=== PATIENT | male | born 1975 | race Two or more races ===

== ENCOUNTER 2021-01-20 11:57 | Emergency (ER) | payer MEDICAID ==
[~2021-01-20] VITALS: Ht 177.8 cm; Wt 72.6 kg
[~2021-01-20 11:57] MED LIST: ATO40T PO; FURO40TA4 PO; INSLANTI SC; INSLISPI SC; LISI20TA28 PO; NIFE90TA49 PO
[2021-01-20 13:37] LABS: Basophils # (auto) 0.1 10 ^3/uL (0-0.2); Basophils % (auto) 0.4 % (0.0-2.0); Eosinophils # (auto) 0.1 10 ^3/uL (0-0.8); Eosinophils % (auto) 0.9 % (0.0-7.0); Hemoglobin 11.6 g/dL (13.5-17.5); Lymphocytes # (auto) 1.4 10 ^3/uL (0.4-5.4); Lymphocytes % (auto) 9.9 % (10.0-50.0); Mean Corpuscular Hemoglobin 32.1 pg (28.0-32.0); Mean Corpuscular Hgb Conc. 33.2 g/dL (32.0-36.0); Mean Corpuscular Volume 96.7 fL (80.0-100.0); Monocytes # (auto) 0.7 10 ^3/uL (0-1.3); Monocytes % (auto) 5.2 % (0.0-12.0); Neutrophils # (auto) 11.4 10 ^3/uL (1.6-8.6); Neutrophils % (auto) 83.6 % (37.0-80.0); Platelet Count (auto) 184 10^3/uL (140-450); Red Blood Cells 3.62 10^6/uL (4.5-5.90); Red Cell Distribution Width 12.7 % (11.8-14.3); White Blood Cell 13.7 10^3/uL (4.4-10.8)
[2021-01-20 13:51] LABS: INR 1.09 (0.9-1.15)
[2021-01-20 13:55] LABS: Anion Gap 14 (5-15); Blood Urea Nitrogen 64 mg/dL (7-18); Calcium 8.9 mg/dL (8.5-10.1); Carbon Dioxide 28 mmol/L (21-32); Chloride 98 mmol/L (98-107); Glucose 125 mg/dL (74-106); Potassium 4.2 mmol/L (3.5-5.1); Sodium 140 mmol/L (136-145)
[2021-01-20 14:00] LABS: Alanine Aminotransferase 42 U/L (16-61); Alkaline Phosphatase 148 U/L (45-117); Aspartate Aminotransferase 17 U/L (15-37); BUN/Creatinine Ratio 4.7; Bilirubin, Total 0.4 mg/dL (0.2-1.0); GFR African American 5 mL/min; GFR Non-African American 4 mL/min; Total Protein 7.8 g/dL (6.4-8.2)
[2021-01-20 16:57] VITALS: BP 173/84
== END 2021-01-20 17:12 | disposition home or self-care (01) ==
LOC: EDBD 11:57 → ER 12:00
DX: E11.649 Type 2 diabetes mellitus with hypoglycemia without coma (principal); T68.XXXA Hypothermia, initial encounter; I12.0 Hypertensive chronic kidney disease with stage 5 chronic kidney disease or end stage renal disease; E11.22 Type 2 diabetes mellitus with diabetic chronic kidney disease; N18.6 End stage renal disease; H54.7 Unspecified visual loss; E11.319 Type 2 diabetes mellitus with unspecified diabetic retinopathy without macular edema; R55 Syncope and collapse; Z20.822 Contact with and (suspected) exposure to COVID-19; Z99.2 Dependence on renal dialysis; Z79.899 Other long term (current) drug therapy; Z79.82 Long term (current) use of aspirin
CPT/HCPCS: 36415; 70450; 71045; 80053; 82962; 83036; 84484; 85025; 85610; 85730; 87426; 93005

== ENCOUNTER 2022-01-03 23:45 | Inpatient (IN) | payer MEDICAID ==
[~2022-01-03] VITALS: Ht 172.7 cm; Wt 70.9 kg
[2022-01-04] MEDS ORDERED: LORazepam 2MG/ML-1ML VIAL IV ONE
[2022-01-04] MEDS ORDERED: LORazepam 2MG/ML-1ML VIAL ONE (00:02)
[2022-01-04] MEDS ORDERED: ACCU-CHEK COMFORT CURVE STRIP VI ONE ×2 (00:15)
[2022-01-04] MEDS ORDERED: DEXTROSE (50%) 50ML SYRG IV ONE ×2 (00:15)
[2022-01-04 00:42] LABS: Albumin 3.9 g/dL (3.4-5.0); Calcium 8.3 mg/dL (8.5-10.1)
[2022-01-04 00:45] LABS: BUN/Creatinine Ratio 3.3
[2022-01-04 00:47] LABS: Bilirubin, Total 0.4 mg/dL (0.2-1.0); Total Protein 7.5 g/dL (6.4-8.2)
[2022-01-04] MEDS ORDERED: PIPERACILLIN-TAZOB 3.375GM 100 ML IV ONE (01:30)
[2022-01-04] MEDS ORDERED: VANCOMYCIN 1GM/250ML 250 ML IV ONE (01:30)
[2022-01-04 02:41] LABS: Urine Bacteria FEW /hpf (None Seen); Urine Blood TRACE /uL (Negative); Urine Specific Gravity 1.014 (1.001-1.035); Urine Sperm PRESENT /hpf (None Seen); Urine WBC 11 /hpf (0 - 3)
[2022-01-04 02:48] LABS: Alcohol, Urine < 3.0 mg/dL (0-10); Amphetamine Screen, Urine NEGATIVE (NEGATIVE); Barbiturate Scree,Urine NEGATIVE (NEGATIVE); Benzodiazephine Screen, Urine NEGATIVE (NEGATIVE); Cannabinoid Screen, Urine NEGATIVE (NEGATIVE); Cocaine Screen, Urine NEGATIVE (NEGATIVE); Opiate Scree,Urine NEGATIVE (NEGATIVE); Phencyclidine Screen, Urine NEGATIVE (NEGATIVE)
[2022-01-04] MEDS ORDERED: NIFEdipine 10 MG CAP PO ONE (05:15)
[2022-01-04] MEDS ORDERED: NIFEdipine 10 MG CAP ONE ×2 (05:49→05:50)
[2022-01-04] MEDS ORDERED: ONDANSETRON HCL 4 MG/2 ML VIAL IV PRN (06:45)
[2022-01-04] MEDS ORDERED: DEXTROSE (50%) 50ML SYRG IV PRN ×2 (06:45→11:45)
[2022-01-04 07:31] LABS: Basophils # (auto) 0 10 ^3/uL (0-0.2); Basophils % (auto) 0.6 % (0.0-2.0); Eosinophils # (auto) 0 10 ^3/uL (0-0.8); Eosinophils % (auto) 0.9 % (0.0-7.0); Hematocrit 37.9 % (41.0-53.0); Hemoglobin 12.8 g/dL (13.5-17.5); Lymphocytes # (auto) 0.9 10 ^3/uL (0.4-5.4); Lymphocytes % (auto) 17.4 % (10.0-50.0); Mean Corpuscular Hemoglobin 31.3 pg (28.0-32.0); Mean Corpuscular Hgb Conc. 33.8 g/dL (32.0-36.0); Mean Corpuscular Volume 92.6 fL (80.0-100.0); Monocytes # (auto) 0.6 10 ^3/uL (0-1.3); Monocytes % (auto) 11.3 % (0.0-12.0); Neutrophils # (auto) 3.7 10 ^3/uL (1.6-8.6); Neutrophils % (auto) 69.8 % (37.0-80.0); Nucleated Red Blood Cells % 0.1 %; Red Blood Cells 4.09 10^6/uL (4.5-5.90); Red Cell Distribution Width 13.3 % (11.8-14.3); White Blood Cell 5.3 10^3/uL (4.4-10.8)
[2022-01-04] MEDS ORDERED: InsuLIN REG 1unit/0.01ml Soln (100units/ml) SC SCH (08:00)
[2022-01-04] MEDS ORDERED: ACCU-CHEK COMFORT CURVE STRIP VI SCH (08:00)
[2022-01-04] MEDS: cefTRIAXone 1GM/50ML D5W 50 ML IV SCH (09:45)
[2022-01-04] MEDS: FUROSEMIDE 40 MG TAB PO SCH (09:46)
[2022-01-04] MEDS: LISINOPRIL 20 MG TAB PO SCH (09:46)
[2022-01-04] MEDS: NIFEdipine ER 30 MG TAB PO SCH (10:33)
[2022-01-04] MEDS: ACCU-CHEK COMFORT CURVE STRIP VI SCH ×3 (12:00→23:45)
[2022-01-04] MEDS: InsuLIN REG 1unit/0.01ml Soln (100units/ml) SC SCH ×3 (12:00→23:57)
[2022-01-04] MEDS ORDERED: PANT40T PO (14:15)
[2022-01-04 16:00] VITALS: BP 138/75
[2022-01-04 20:00] VITALS: BP 124/84
[2022-01-04 22:00] VITALS: BP 124/84
[2022-01-04] MEDS: ATORVASTATIN 20 MG TAB PO SCH (23:45)
[2022-01-05 05:00] VITALS: BP 156/86
[2022-01-05 06:35] LABS: Basophils # (auto) 0.1 10 ^3/uL (0-0.2); Basophils % (auto) 0.9 % (0.0-2.0); Eosinophils # (auto) 0.3 10 ^3/uL (0-0.8); Eosinophils % (auto) 4.6 % (0.0-7.0); Hematocrit 36.2 % (41.0-53.0); Hemoglobin 12.5 g/dL (13.5-17.5); Lymphocytes # (auto) 1.3 10 ^3/uL (0.4-5.4); Lymphocytes % (auto) 21.2 % (10.0-50.0); Mean Corpuscular Hemoglobin 31.8 pg (28.0-32.0); Mean Corpuscular Hgb Conc. 34.6 g/dL (32.0-36.0); Mean Corpuscular Volume 92.2 fL (80.0-100.0); Monocytes # (auto) 0.9 10 ^3/uL (0-1.3); Monocytes % (auto) 14.4 % (0.0-12.0); Neutrophils # (auto) 3.5 10 ^3/uL (1.6-8.6); Neutrophils % (auto) 58.9 % (37.0-80.0); Red Blood Cells 3.93 10^6/uL (4.5-5.90); Red Cell Distribution Width 13.4 % (11.8-14.3); White Blood Cell 5.9 10^3/uL (4.4-10.8)
[2022-01-05] MEDS: ACCU-CHEK COMFORT CURVE STRIP VI SCH ×3 (06:44→18:00)
[2022-01-05] MEDS: InsuLIN REG 1unit/0.01ml Soln (100units/ml) SC SCH ×3 (06:49→18:00)
[2022-01-05 06:53] LABS: Albumin 3.5 g/dL (3.4-5.0); Calcium 8.9 mg/dL (8.5-10.1); Potassium 4.8 mmol/L (3.5-5.1)
[2022-01-05 06:56] LABS: BUN/Creatinine Ratio 4.2
[2022-01-05 06:58] LABS: Bilirubin, Total 0.4 mg/dL (0.2-1.0); Total Protein 7.4 g/dL (6.4-8.2)
[2022-01-05] MEDS: cefTRIAXone 1GM/50ML D5W 50 ML IV SCH (08:39)
[2022-01-05 09:00] VITALS: BP 139/80
[2022-01-05] MEDS: NIFEdipine ER 30 MG TAB PO SCH (10:00)
[2022-01-05] MEDS: FUROSEMIDE 40 MG TAB PO SCH (10:00)
[2022-01-05] MEDS: LISINOPRIL 20 MG TAB PO SCH (10:00)
[2022-01-05 13:00] VITALS: BP 158/86
[2022-01-05] MEDS: LABETALOL HCL 5 MG/ML 4ML SYRINGE IV PRN (15:38)
[2022-01-05 17:00] VITALS: BP 176/92
[2022-01-05 20:00] VITALS: BP 129/69
[2022-01-05] MEDS: ATORVASTATIN 20 MG TAB PO SCH (21:28)
[2022-01-05 22:00] VITALS: BP 129/69
[2022-01-06] MEDS: ACCU-CHEK COMFORT CURVE STRIP VI SCH ×5 (00:44→23:58)
[2022-01-06] MEDS: InsuLIN REG 1unit/0.01ml Soln (100units/ml) SC SCH ×5 (00:45→23:59)
[2022-01-06 05:00] VITALS: BP 139/82
[2022-01-06 05:26] LABS: Basophils # (auto) 0 10 ^3/uL (0-0.2); Basophils % (auto) 0.7 % (0.0-2.0); Eosinophils # (auto) 0.3 10 ^3/uL (0-0.8); Eosinophils % (auto) 4.1 % (0.0-7.0); Hematocrit 34.1 % (41.0-53.0); Hemoglobin 11.7 g/dL (13.5-17.5); Lymphocytes # (auto) 1.2 10 ^3/uL (0.4-5.4); Lymphocytes % (auto) 19.5 % (10.0-50.0); Mean Corpuscular Hemoglobin 31.5 pg (28.0-32.0); Mean Corpuscular Hgb Conc. 34.4 g/dL (32.0-36.0); Mean Corpuscular Volume 91.4 fL (80.0-100.0); Monocytes # (auto) 0.8 10 ^3/uL (0-1.3); Monocytes % (auto) 12.4 % (0.0-12.0); Neutrophils % (auto) 63.3 % (37.0-80.0); Red Blood Cells 3.73 10^6/uL (4.5-5.90); Red Cell Distribution Width 13.2 % (11.8-14.3); White Blood Cell 6.3 10^3/uL (4.4-10.8)
[2022-01-06 05:46] LABS: BUN/Creatinine Ratio 4.8; Calcium 8.7 mg/dL (8.5-10.1); Potassium 5.1 mmol/L (3.5-5.1)
[2022-01-06] MEDS ORDERED: SODIUM CHL 0.9% 1000 ML BAG XX ONE (07:00)
[2022-01-06 09:00] VITALS: BP 160/84
[2022-01-06] MEDS: cefTRIAXone 1GM/50ML D5W 50 ML IV SCH (09:00)
[2022-01-06] MEDS: FUROSEMIDE 40 MG TAB PO SCH (12:48)
[2022-01-06] MEDS: LISINOPRIL 20 MG TAB PO SCH (12:49)
[2022-01-06] MEDS: NIFEdipine ER 30 MG TAB PO SCH (12:49)
[2022-01-06 17:00] VITALS: BP 178/93
[2022-01-06] MEDS: LABETALOL HCL 5 MG/ML 4ML SYRINGE IV PRN (18:30)
[2022-01-06 20:00] VITALS: BP 138/74
[2022-01-06 22:00] VITALS: BP 138/74
[2022-01-06] MEDS: ATORVASTATIN 20 MG TAB PO SCH (23:25)
[2022-01-07 05:00] VITALS: BP 154/80
[2022-01-07 05:36] LABS: Basophils # (auto) 0 10 ^3/uL (0-0.2); Basophils % (auto) 0.7 % (0.0-2.0); Eosinophils # (auto) 0.2 10 ^3/uL (0-0.8); Eosinophils % (auto) 3.5 % (0.0-7.0); Hemoglobin 12.2 g/dL (13.5-17.5); Lymphocytes # (auto) 1.3 10 ^3/uL (0.4-5.4); Lymphocytes % (auto) 20.7 % (10.0-50.0); Mean Corpuscular Hemoglobin 31.2 pg (28.0-32.0); Mean Corpuscular Hgb Conc. 33.8 g/dL (32.0-36.0); Mean Corpuscular Volume 92.2 fL (80.0-100.0); Monocytes # (auto) 0.8 10 ^3/uL (0-1.3); Monocytes % (auto) 13.4 % (0.0-12.0); Neutrophils # (auto) 3.7 10 ^3/uL (1.6-8.6); Neutrophils % (auto) 61.7 % (37.0-80.0); Nucleated Red Blood Cells % 0.1 %; Red Blood Cells 3.91 10^6/uL (4.5-5.90); Red Cell Distribution Width 13.1 % (11.8-14.3); White Blood Cell 6.1 10^3/uL (4.4-10.8)
[2022-01-07 05:56] LABS: Potassium 5.1 mmol/L (3.5-5.1)
[2022-01-07 06:02] LABS: Calcium 9.4 mg/dL (8.5-10.1)
[2022-01-07] MEDS: ACCU-CHEK COMFORT CURVE STRIP VI SCH ×2 (06:15→12:27)
[2022-01-07] MEDS: InsuLIN REG 1unit/0.01ml Soln (100units/ml) SC SCH ×2 (06:19→12:28)
[2022-01-07 09:00] VITALS: BP 166/86
[2022-01-07] MEDS: FUROSEMIDE 40 MG TAB PO SCH (09:39)
[2022-01-07] MEDS: LISINOPRIL 20 MG TAB PO SCH (09:40)
[2022-01-07] MEDS: NIFEdipine ER 30 MG TAB PO SCH (09:40)
[2022-01-07] MEDS: cefTRIAXone 1GM/50ML D5W 50 ML IV SCH ×2 (09:41→09:52)
[2022-01-07] MEDS ORDERED: PANTOPRAZOLE 40 MG TAB PO SCH (10:00)
== END 2022-01-07 14:30 | disposition home or self-care (01) | DRG 52 ==
LOC: EDBD 23:45 → ER 23:50 → OVERFLOW 01-04 06:39 → EAST 01-04 11:06
PROVIDERS: ADMIT Nurse Practitioner; ATTEND Internal Medicine Pulmonary Disease
PROC: 5A1D70Z Performance of Urinary Filtration, Intermittent, Less than 6 Hours Per Day (ICD-10-PCS; principal; 2022-01-06)
DX: G93.41 Metabolic encephalopathy (principal); E11.649 Type 2 diabetes mellitus with hypoglycemia without coma; I12.0 Hypertensive chronic kidney disease with stage 5 chronic kidney disease or end stage renal disease; N18.6 End stage renal disease; N25.81 Secondary hyperparathyroidism of renal origin; K80.20 Calculus of gallbladder without cholecystitis without obstruction; I16.0 Hypertensive urgency; Z20.822 Contact with and (suspected) exposure to COVID-19; N39.0 Urinary tract infection, site not specified; I16.9 Hypertensive crisis, unspecified; E11.65 Type 2 diabetes mellitus with hyperglycemia; E05.90 Thyrotoxicosis, unspecified without thyrotoxic crisis or storm; E11.22 Type 2 diabetes mellitus with diabetic chronic kidney disease; H54.8 Legal blindness, as defined in USA; M89.8X9 Other specified disorders of bone, unspecified site; N20.0 Calculus of kidney; Z79.4 Long term (current) use of insulin; Z79.899 Other long term (current) drug therapy; Z83.3 Family history of diabetes mellitus; Z99.2 Dependence on renal dialysis
CPT/HCPCS: 36415; 70450; 71045; 71250; 74176; 76705; 78226; 80048; 80053; 80307; 81001; 82010; 82140; 82550; 82962; 83605; 84484; 85025; 87040; 90935; 93005; 96365; 96367; 96368; 96375; G0378; J0696; J1642; J1815; J2543; J3490

== ENCOUNTER 2024-12-25 16:40 | Inpatient (IN) | payer MEDICAID, OTHER ==
[~2024-12-25] VITALS: Ht 160 cm; Wt 72.7 kg
[~2024-12-25 16:40] MED LIST changes: -ATO40T PO; +ATOR-507 PO; -LISI20TA28 PO; +LISI20TA56 PO; -NIFE90TA49 PO; +NIFE90TA75 PO; +PANT40T PO
--- NOTE | 2024-12-25 16:49 | ED.PDOC ---
History of Present Illness HPI Comments 49-year-old male brought by paramedics because he passed out while working on his car hour ago. Patient also states that he has been having arm and leg pain more like a cramping sensation which started working on his car. He is complaining of headache. Patient does have a history of hypertension diabetes chronic kidney disease on dialysis Thursday. His blood pressure on arrival was 173/86 with a heart rate of 63 saturation 97% on room air. His blood sugar was 185. Denies any other symptoms. Time Seen by MD: 16:41 Primary Care Provider: DEEPTHI Reviewed Notes: Nurses Notes, Medications, Allergies Allergies: Coded Allergies: NO KNOWN ALLERGIES (Unverified , 01/26/14) Home Meds Reported Medications Pantoprazole Sodium Sesquihydr (Pantoprazole Sodium) 40 Mg Tab, 1 TAB PO DAILYPRN 01/04/22 Nifedipine (Nifedipine Er) 90 Mg Tab, 1 TAB PO DAILY, #30 TAB 5 Refills 11/18/18 Furosemide (Furosemide) 40 Mg Tab, 1 TAB PO DAILY, #90 TAB 3 Refills 11/18/18 Atorvastatin Calcium (Lipitor) 40 Mg Tab, 1 TAB PO QPM, #90 TAB 1 Refill 11/18/18 Insulin Lispro (Human) (Humalog) Unknown Strength Inj, SC, INJ 11/17/18 Insulin Glargine (Lantus) Unknown Strength Inj, SC, INJ 11/17/18 Lisinopril (Lisinopril) 20 Mg Tab, 20 MG PO DAILY for 30 Days, MG 11/17/18 Information Source: Patient, Emergency Med Personnel Mode of Arrival: EMS Severity: Moderate Timing: Hours Duration: Since onset Past Medical History PAST MEDICAL HISTORY: DM, ESRD, HTN Family History Family History: No family hx of Cancer, No family hx of DM Social History Smoker: Non-Smoker Alcohol: Occasionally Drugs: Denies Drug Use Lives In: Home Constitutional: denies: chills, diaphoresis, fatigue, fever, malaise, sweats, weakness, others EENTM: denies: blurred vision, double vision, ear bleeding, ear discharge, ear drainage, ear pain, ear ringing, eye pain, eye redness, hearing loss, mouth pain, mouth swelling, nasal discharge, nose bleeding, nose congestion, nose pain, photophobia, tearing, throat pain, throat swelling, voice changes, others Respiratory: denies: cough, hemoptysis, orthopnea, SOB at rest, shortness of breath, SOB with excertion, stridor, wheezing, others Cardiovascular: denies: chest pain, dizzy spells, diaphoresis, Dyspnea on exertion, edema, irregular heart beat, left arm pain, lightheadedness, palpitations, PND, syncope, others Gastrointestinal: denies: abdomen distended, abdominal pain, blood streaked bowels, constipated, diarrhea, dysphagia, difficulty swallowing, hematemesis, melena, nausea, poor appetite, poor fluid intake, rectal bleeding, rectal pain, vomiting, others Genitourinary: denies: burning, dysuria, flank pain, frequency, hematuria, incontinence, penile discharge, penile sore, pain, testicle pain, testicle swelling, urgency, others Neurological: denies: dizziness, fainting, headache, left sided numbness, left sided weakness, numbness, paresthesia, pre-existing deficit, right sided numbness, right sided weakness, seizure, speech problems, tingling, tremors, weakness, others Musculoskeletal: reports: muscle pain; denies: back pain, gout, joint pain, joint swelling, muscle stiffness, neck pain, others Integumetry: denies: bruises, change in color, change in hair/nails, dryness, laceration, lesions, lumps, rash, wounds, others Allergic/Immunocompromised: denies: Difficulty Healing, Frequent Infections, Hives, Itching, others Hematologic/Lymphatic: denies: anemia, blood clots, easy bleeding, easy bruising, swollen glands, others Endocrine: denies: excessive hunger, excessive sweating, excessive thirst, excessive urination, flushing, intolerance to cold, intolerance to heat, unexplained weight gain, unexplained weight loss, others Psychiatric: denies: anxiety, bipolar disorder, depression, hopeless, panic disorder, schizophrenia, sleepless, suicidal, others Physical Exam General Appearance: Moderate Distress HEENT: Normal ENT Inspection, Pharynx Normal, TMs Normal Neck: Full Range of Motion, Non-Tender, Normal, Normal Inspection Respiratory: Chest Non-Tender, Lungs Clear, No Accessory Muscle Use, No Respiratory Distress, Normal Breath Sounds Cardiovascular: No Edema, No JVD, No Murmur, No Gallop, Normal Peripheral Pulses, Regular Rate/Rhythm Breast Exam: Deferred Gastrointestinal: No Organomegaly, Non Tender, No Pulsatile Mass, Normal Bowel Sounds, Soft Genitalia: Deferred Pelvic: Deferred Rectal: Deferred Extremities: No calf tenderness, No pedal edema Musculoskeletal : Apperance: Normal Neurologic: Alert, No Motor Deficits, No Sensory Deficits Cerebellar Function: NOT DONE Reflexes: NOT DONE Skin: Normal Color Peripheral Pulses: 3+ Radial (R), 3+ Radial (L) Lymphatic: No Adenopathy Was a procedure done? Was a procedure done?: No EKG EKG : Pulse Rate (adult): 64 [place]: Normal Cardiac Rhythm: NSR Differential Dx Considerations may include: Anemia Electrolyte imbalance X-Ray, Labs, Meds, VS Vital Signs Date Time Temp Pulse Resp B/P (MAP) Pulse Ox O2 Delivery O2 Flow Rate FiO2 12/25/24 16:53 97.2 63 14 173/86 (115) 97 97.2 12/25/24 16:49 64 12/25/24 16:44 64 Lab Test 12/25/24 16:52 Range/Units White Blood Count 7.1 4.4-10.8 10^3/uL Red Blood Count 3.51 L 4.5-5.90 10^6/uL Hemoglobin 11.0 L 13.5-17.5 g/dL Hematocrit 33.4 L 41.0-53.0 % Mean Corpuscular Volume 95.2 80.0-100.0 fL Mean Corpuscular Hemoglobin 31.2 28.0-32.0 pg Mean Corpuscular Hemoglobin Concent 32.8 32.0-36.0 g/dL Red Cell Distribution Width 15.0 H 11.8-14.3 % Platelet Count 160 140-450 10^3/uL Mean Platelet Volume 8.4 6.9-10.8 fL Neutrophils (%) (Auto) 74.9 37.0-80.0 % Lymphocytes (%) (Auto) 14.0 10.0-50.0 % Monocytes (%) (Auto) 8.7 0.0-12.0 % Eosinophils (%) (Auto) 2.2 0.0-7.0 % Basophils (%) (Auto) 0.2 0.0-2.0 % Neutrophils # (Auto) 5.3 1.6-8.6 10 ^3/uL Lymphocytes # (Auto) 1.0 0.4-5.4 10 ^3/uL Monocytes # (Auto) 0.6 0-1.3 10 ^3/uL Eosinophils # (Auto) 0.2 0-0.8 10 ^3/uL Basophils # (Auto) 0 0-0.2 10 ^3/uL Nucleated Red Blood Cells 0.1 % Sodium Level Pending Potassium Level Pending Chloride Level Pending Carbon Dioxide Level Pending Anion Gap Pending Blood Urea Nitrogen Pending Creatinine Pending Glomerular Filtration Rate Calc Pending BUN/Creatinine Ratio Pending Serum Glucose Pending Calcium Level Pending Troponin I High Sensitivity Pending Patient alert. Possible syncope. Vitals stable. Answering questions. He is on dialysis. EKG reviewed does show electrolyte changes. No sign of any injury. CT of the head reviewed does not show any acute process. Anemia. WBC within normal limits. Blood pressure elevated. Was given clonidine. Reviewed his history. Explained to the patient. Continue cardiac monitoring. Time of 1ST Reevaluation: 16:46 Reevaluation 1ST: Unchanged Patient Education/Counseling: Diagnosis, Treatment, Prognosis Family Education/Counseling: No Family Present Departure 1 Departure Time of Disposition: 16:47 Impression: Primary Impression: Syncope Qualified Codes: R55 - Syncope and collapse Additional Impressions: Hypertensive urgency Uncontrolled diabetes mellitus Qualified Codes: E13.65 - Other specified diabetes mellitus with hyperglycemia Chronic kidney disease on chronic dialysis Disposition: ADMITTED INPATIENT Admit to: Med Surg Condition: Guarded Critical Care Note Critical Care Time?: Yes (45 min-critical care time only) Critical care comment: Monitor blood pressure blood sugar Stability Stability form required: No Heart Score Heart Score: Heart Score Response (Comments) Value History Slightly Suspicious 0 EKG Normal 0 Age 45-64 1 Risk Factors >3 or Hx ASHD 2 Troponin Normal limit 0 Total 3 ALETHA JENNINGS MD Dec 25, 2024 16:49
--- NOTE | 2024-12-25 16:56 | ECG ---
[facility] Test Date: 2024-12-25 Test Time: 16:44:11 Pat Name: HONG MANCUSO Department: ED Room: 0276T Gender: M Extern: tresa : 1975 Requested By: EMERGENCY EMERGENCY Order Number: [id number] Reading MD: Kevin Donohue Measurements Intervals [place] Rate: 64 P: 86 GA: 234 QRS: 77 QRSD: 153 T: 67 QT: 466 QTc: 481 Interpretive Statements Sinus rhythm Prolonged GA interval Nonspecific intraventricular conduction delay Electronically Signed On 12-28-2024 20:56:14 PDT by Kevin Donohue Please click the below link to view image of tracing.
--- NOTE | 2024-12-25 17:23 | DVH ---
CT HEAD WITHOUT CONTRAST INDICATION: fall COMPARISON: HEAD WITHOUT CONTRAST on DOS: 01/04/22, HEAD WITHOUT CONTRAST on DOS: 01/20/21 TECHNIQUE: CT of the head without intravenous contrast. RADIATION DOSE: CTDIvol: mGy, DLP: mGy*cm FINDINGS: There is no evidence of intracranial hemorrhage, infarct, extra-axial collection, mass effect, midli ne shift, herniation or hydrocephalus. The ventricles, sulci and cisterns are normal. The zavala-white differentiation is normal. Extensive vascular calcifications noted presumably related to DM/CKD. Extensive mucosal thickening wi th complete opacification of bilateral sphenoid sinuses, right maxillary, right ethmoid, and right fr ontal sinuses, mucosal thickening in left maxillary sinus. Mastoid air cells and middle ear cavities are clear. Soft tissues and osseous structures are unremarkable. IMPRESSION: No intracranial abnormality identified. Sinusitis.
[2024-12-25 17:24] LABS: Basophils # (auto) 0 10 ^3/uL (0-0.2); Basophils % (auto) 0.2 % (0.0-2.0); Eosinophils # (auto) 0.2 10 ^3/uL (0-0.8); Eosinophils % (auto) 2.2 % (0.0-7.0); Hematocrit 33.4 % (41.0-53.0); Mean Corpuscular Hemoglobin 31.2 pg (28.0-32.0); Mean Corpuscular Hgb Conc. 32.8 g/dL (32.0-36.0); Mean Corpuscular Volume 95.2 fL (80.0-100.0); Monocytes # (auto) 0.6 10 ^3/uL (0-1.3); Monocytes % (auto) 8.7 % (0.0-12.0); Neutrophils # (auto) 5.3 10 ^3/uL (1.6-8.6); Neutrophils % (auto) 74.9 % (37.0-80.0); Nucleated Red Blood Cells % 0.1 %; Platelet Count (auto) 160 10^3/uL (140-450); Red Blood Cells 3.51 10^6/uL (4.5-5.90); White Blood Cell 7.1 10^3/uL (4.4-10.8)
[2024-12-25 17:29] LABS: Anion Gap 16 (5-15); Calcium 10.2 mg/dL (8.7-10.4)
[2024-12-25 17:34] LABS: BUN/Creatinine Ratio 5.7 (10.0-20.0)
[2024-12-25] MEDS: MORPHINE SULFATE 4 MG/ML SYR/VIAL IV ONE (17:37)
[2024-12-25] MEDS: ONDANSETRON HCL 4 MG/2 ML VIAL IV ONE (17:38)
[2024-12-25 18:12] LABS: Sodium 131 mmol/L (136-145)
[2024-12-25 18:13] LABS: Blood Urea Nitrogen 54 mg/dL (9-23); Carbon Dioxide 18 mmol/L (20-31); Chloride 97 mmol/L (98-107); Glucose 189 mg/dL (74-106)
[2024-12-25 18:22] LABS: Potassium 7.2 mmol/L (3.5-5.1)
[2024-12-25] MEDS: ALBUTEROL SULF 2.5 MG/0.5ML(0.5%) NEB SOLN NEB ONE (19:09)
[2024-12-25] MEDS: DEXTROSE (50%) 50ML SYRG IV ONE (19:33)
[2024-12-25] MEDS: SODIUM BICARB 8.4% 50Meq/50ml SYR INJ IV ONE (19:33)
[2024-12-25] MEDS: InsuLIN REG 1unit/0.01ml Soln (100units/ml) IV ONE (19:34)
[2024-12-25] MEDS: CALCIUM GLUC 1,000mg/50ml-NS 50 ML IV ONE (19:37)
[2024-12-25] MEDS: cloNIDine HCL 0.1 MG TAB PO ONE (20:05)
[2024-12-25] MEDS: GABAPENTIN 300 MG CAP PO ONE (20:05)
[2024-12-25] MEDS: FUROSEMIDE 40 MG/4 ML VIAL IV ONE (20:06)
[2024-12-25] MEDS: ACETAMINOPHEN 500 MG TAB or CAP PO ONE (20:06)
[2024-12-25 20:34] VITALS: PULSE 73; RESP 18; O2SAT 100
[2024-12-25] MEDS: HYDROmorphone HCL 2 MG/ML VL/or syr IV ONE (20:52)
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
[2024-12-25] MEDS ORDERED: DEXTROSE (50%) 50ML SYRG IV PRN (23:30)
[2024-12-25] MEDS: MORPHINE SULFATE INJ 2 MG/ml SYRG IV PRN (23:32)
[2024-12-25 23:39] LABS: Basophils # (auto) 0 10 ^3/uL (0-0.2); Basophils % (auto) 0.2 % (0.0-2.0); Eosinophils # (auto) 0 10 ^3/uL (0-0.8); Eosinophils % (auto) 0.1 % (0.0-7.0); Hematocrit 33.8 % (41.0-53.0); Hemoglobin 11.1 g/dL (13.5-17.5); Lymphocytes # (auto) 0.5 10 ^3/uL (0.4-5.4); Lymphocytes % (auto) 6.6 % (10.0-50.0); Mean Corpuscular Hemoglobin 31.4 pg (28.0-32.0); Mean Corpuscular Hgb Conc. 32.9 g/dL (32.0-36.0); Mean Corpuscular Volume 95.4 fL (80.0-100.0); Monocytes # (auto) 0.3 10 ^3/uL (0-1.3); Monocytes % (auto) 3.2 % (0.0-12.0); Neutrophils # (auto) 7.1 10 ^3/uL (1.6-8.6); Neutrophils % (auto) 89.9 % (37.0-80.0); Platelet Count (auto) 135 10^3/uL (140-450); Red Blood Cells 3.55 10^6/uL (4.5-5.90); Red Cell Distribution Width 14.8 % (11.8-14.3); White Blood Cell 7.9 10^3/uL (4.4-10.8)
[2024-12-25] MEDS: AMPICILLIN & SULBACTAM SODIUM 3 GM in SODIUM CHL 0.9% 100 ML IV SCH (23:45)
[2024-12-25] MEDS: hydrALAZINE HCL 25 MG TAB PO ONE (23:47)
[2024-12-25 23:49] LABS: Alanine Aminotransferase 36 U/L (7-40); Anion Gap 17 (5-15); Aspartate Aminotransferase 22 U/L (13-40); BUN/Creatinine Ratio 6.8 (10.0-20.0); Cholesterol 149 mg/dL (< 200); LDL Cholesterol 56 mg/dL (< 100); Triglycerides 103 mg/dL (< 150)
[2024-12-25 23:50] LABS: Phosphorus 4.8 mg/dL (2.4-5.1)
[2024-12-25 23:56] LABS: Alkaline Phosphatase 188 U/L (46-116); Bilirubin, Total 0.2 mg/dL (0.2-1.0); Blood Urea Nitrogen 66 mg/dL (9-23); Calcium 10.5 mg/dL (8.7-10.4); Carbon Dioxide 18 mmol/L (20-31); Chloride 93 mmol/L (98-107); HDL Cholesterol 67 mg/dL (40-59); Magnesium 3.1 mg/dL (1.6-2.6); Sodium 128 mmol/L (136-145); Total Protein 8.3 g/dL (5.7-8.2)
[2024-12-25 23:58] LABS: INR 1.03 (0.9-1.15); Partial Thromboplastin Time 29.1 SEC (24.5-34.5); Prothrombin Time 10.9 sec (9.3-11.8)
[2024-12-25 23:59] LABS: Glucose 407 mg/dL (74-106)
[2024-12-26] VITALS (44 sets, daily range): BP systolic 140–193; BP diastolic 73–97; PULSE 61–72; RESP 7–18; TEMP 97.4–97.6; O2SAT 94–100
[2024-12-26 00:33] LABS: Base Excess -9.9 mmol/L (-2.0-3.0)
[2024-12-26] MEDS: INSULIN LANTUS (GLARGINE) 1 /0.01ml (100units/ml) SC ONE (00:39)
[2024-12-26] MEDS: ALBUTEROL SULF 2.5 MG/0.5ML(0.5%) NEB SOLN NEB ONE (00:39)
[2024-12-26] MEDS: InsuLIN REG 1unit/0.01ml Soln (100units/ml) IV ONE (00:40)
[2024-12-26] MEDS: INSULIN DRIP 100 UNIT/100ML 100 ML IV SCH (00:44)
[2024-12-26] MEDS: SODIUM BICARB 8.4% 50Meq/50ml SYR INJ IV ONE (00:45)
[2024-12-26] MEDS: FUROSEMIDE 40 MG/4 ML VIAL IV ONE (00:45)
[2024-12-26] MEDS: CALCIUM GLUC 1,000mg/50ml-NS 50 ML IV ONE (00:46)
[2024-12-26] MEDS: SODIUM ZIRCONIUM CYCL 10 GM PAK PO ONE (00:46)
[2024-12-26] MEDS: ACCU-CHEK COMFORT CURVE STRIP VI SCH ×2 (01:32→18:26)
[2024-12-26] MEDS: NIFEdipine 10 MG CAP PO ONE (02:26)
[2024-12-26 04:47] LABS: Basophils # (auto) 0 10 ^3/uL (0-0.2); Basophils % (auto) 0.3 % (0.0-2.0); Eosinophils # (auto) 0 10 ^3/uL (0-0.8); Eosinophils % (auto) 0.1 % (0.0-7.0); Hematocrit 32.1 % (41.0-53.0); Hemoglobin 10.7 g/dL (13.5-17.5); Lymphocytes # (auto) 0.7 10 ^3/uL (0.4-5.4); Lymphocytes % (auto) 8.8 % (10.0-50.0); Mean Corpuscular Hemoglobin 31.4 pg (28.0-32.0); Mean Corpuscular Hgb Conc. 33.5 g/dL (32.0-36.0); Mean Corpuscular Volume 93.7 fL (80.0-100.0); Monocytes # (auto) 0.7 10 ^3/uL (0-1.3); Monocytes % (auto) 9.3 % (0.0-12.0); Neutrophils # (auto) 6.3 10 ^3/uL (1.6-8.6); Neutrophils % (auto) 81.5 % (37.0-80.0); Nucleated Red Blood Cells % 0.1 %; Platelet Count (auto) 143 10^3/uL (140-450); Red Blood Cells 3.42 10^6/uL (4.5-5.90); Red Cell Distribution Width 14.8 % (11.8-14.3); White Blood Cell 7.8 10^3/uL (4.4-10.8)
[2024-12-26] MEDS: SODIUM CHLORIDE 0.9% 250 ML IV ONE (04:53)
[2024-12-26] MEDS: SODIUM CHLORIDE 0.9% 1,000 ML IV SCH (04:53)
[2024-12-26 05:03] LABS: Alanine Aminotransferase 27 U/L (7-40); Albumin 4.5 g/dL (3.2-4.8); Anion Gap 18 (5-15); Aspartate Aminotransferase 14 U/L (13-40); BUN/Creatinine Ratio 6.8 (10.0-20.0); Calcium 10.3 mg/dL (8.7-10.4); Carbon Dioxide 22 mmol/L (20-31); Total Protein 7.6 g/dL (5.7-8.2)
[2024-12-26 05:04] LABS: Phosphorus 4.3 mg/dL (2.4-5.1)
[2024-12-26 05:18] LABS: Alkaline Phosphatase 164 U/L (46-116); Bilirubin, Total 0.2 mg/dL (0.2-1.0); Blood Urea Nitrogen 68 mg/dL (9-23); Chloride 95 mmol/L (98-107); Glucose 132 mg/dL (74-106); Sodium 135 mmol/L (136-145)
[2024-12-26 05:20] LABS: Potassium 6.5 mmol/L (3.5-5.1)
[2024-12-26] MEDS: hydrALAZINE HCL 25 MG TAB PO SCH ×2 (05:53→22:29)
--- NOTE | 2024-12-26 06:31 | DVH ---
EXAM: XR Chest, 1 View CLINICAL INDICATION: Syncope TECHNIQUE: Frontal view of the chest. COMPARISON: CHEST XRAY 1 VIEW on DOS: 01/04/22, CXR1 on DOS: 01/04/22 FINDINGS: LUNGS AND PLEURAL SPACES: See below. HEART: Cardiomegaly with mild congestion. MEDIASTINUM: Unremarkable. Normal mediastinal contour. BONES/JOINTS: Unremarkable. No acute fracture. OTHER FINDINGS: . . .. IMPRESSION: Cardiomegaly with mild congestion.
[2024-12-26] MEDS: D5W/SOD CHL 0.45% 1,000 ML IV SCH (06:38)
[2024-12-26] MEDS ORDERED: ACCU-CHEK COMFORT CURVE STRIP VI SCH (07:00)
[2024-12-26] MEDS ORDERED: InsuLIN REG 1unit/0.01ml Soln (100units/ml) SC SCH ×2 (07:00→22:00)
[2024-12-26] MEDS: PANTOPRAZOLE 40 MG TAB PO SCH (08:36)
[2024-12-26] MEDS: NIFEdipine ER 30 MG TAB PO SCH (08:37)
[2024-12-26] MEDS: ACETAMINOPHEN 325 MG TAB PO PRN (08:38)
[2024-12-26] MEDS: FUROSEMIDE 40 MG TAB PO SCH (08:38)
[2024-12-26] MEDS: HEPARIN SODIUM (PORCINE) 5000 UNITS/ML 1ML VIAL SC SCH (08:47)
--- NOTE | 2024-12-26 09:00 | ECG ---
[facility] Test Date: 2024-12-25 Test Time: 19:13:48 Pat Name: HONG MANCUSO Department: ED Room: 0276T Gender: M Supervisor Line Department: BINA : 1975 Requested By: DANK JACQUES Order Number: [id number] Reading MD: Kevin Donohue Measurements Intervals [place] Rate: 65 P: 59 GA: 220 QRS: -76 QRSD: 149 T: 48 QT: 470 QTc: 489 Interpretive Statements Sinus rhythm Prolonged GA interval Nonspecific IVCD with LAD Electronically Signed On 12-28-2024 20:56:34 PDT by Kevin Donohue Please click the below link to view image of tracing.
[2024-12-26] MEDS ORDERED: ENOXAPARIN SOD 40 MG/0.4 ML SYRINGE SC SCH (10:00)
--- NOTE | 2024-12-26 10:07 | DVH ---
Carotid Duplex Date: 12/26/2024 09:16 AM Clinical History: Syncope Comparison: None Technique: Duplex Doppler evaluation of the extracranial carotid and vertebral arteries including col or Doppler and spectral/pulsed waveform analysis was performed. Findings: Velocities and ratios within normal limits. IMPRESSION: No hemodynamically significant stenosis noted in the right carotid system. No hemodynamically significant stenosis noted in the left carotid system. Reference: Radiology 2003; 229:[id number]
[2024-12-26] MEDS: SODIUM CHL 0.9% 1000 ML BAG XX ONE (10:15)
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
[2024-12-26 10:54] LABS: Hepatitis A Ab IgM Negative; Hepatitis B Core IgM Negative (Negative); Hepatitis B Surface Antigen Negative (Negative); Hepatitis C Antibody Negative (Negative)
--- NOTE | 2024-12-26 13:10 | DVHSR ---
APPROVED REPORT EXAM: Two-dimensional and M-mode echocardiogram with Doppler and color Doppler. Blood Pressure: 171/89 mmHg INDICATION Syncope RISK FACTORS Height: 5'3, Weight: 160 DIMENSIONS LVDd4.7 (3.8-5.7cm)LA (2D)3.9 (1.9-4.0cm)Aortic Root3.0 (2.0-3.7cm) LVDs3.2 (2.5-4.0cm)LA (MM) (1.9-4.0cm)Aortic Cusp Exc1.4 (1.5-2.0cm) EF (%) 55.0 (55-70%)Rt. Atrium4.1 (1.9-4.0cm)Asc. Aorta3.3 cm IVSd1.4 (0.7-1.1cm)RV (D)5.0 (1.8-2.4cm) PWd0.7 (0.7-1.1cm) Mitral Valve MitralMitral Stenosis E wave1.25m/sMV Mean GR.mmHg A wave0.80m/sMV Peak GR.103mmHg E/A ratio1.62D MVAcm2 DECEL [id number] 1/2 Timems Aortic Valve Aortic ValveAortic Stenosis V11.25m/Shantanu Mean GR.3mmHg V21.32m/Shantanu Peak GR.7mmHg LVOT Diameter1.9 (1.8-2.4cm)Doppler AVA2.68cm2 Pulmonic Valve V21.10m/s Tricuspid Valve TR Velocity2.53m/s [id number] Conclusion lvef 55% by visual estimaate moderate to severe LVH normal rv function mild left atrium enlargement no severe valve abnomralities noted
[2024-12-26] MEDS: DEXTROSE (50%) 50ML SYRG IV PRN (13:54)
[2024-12-26 14:37] LABS: Basophils # (auto) 0 10 ^3/uL (0-0.2); Basophils % (auto) 0.3 % (0.0-2.0); Eosinophils # (auto) 0.1 10 ^3/uL (0-0.8); Eosinophils % (auto) 1.5 % (0.0-7.0); Hemoglobin 10.7 g/dL (13.5-17.5); Lymphocytes # (auto) 0.8 10 ^3/uL (0.4-5.4); Lymphocytes % (auto) 10.7 % (10.0-50.0); Mean Corpuscular Hemoglobin 31.5 pg (28.0-32.0); Mean Corpuscular Hgb Conc. 33.4 g/dL (32.0-36.0); Mean Corpuscular Volume 94.4 fL (80.0-100.0); Monocytes # (auto) 0.8 10 ^3/uL (0-1.3); Monocytes % (auto) 10.8 % (0.0-12.0); Neutrophils # (auto) 5.4 10 ^3/uL (1.6-8.6); Neutrophils % (auto) 76.7 % (37.0-80.0); Nucleated Red Blood Cells % 0.1 %; Platelet Count (auto) 144 10^3/uL (140-450); Red Blood Cells 3.39 10^6/uL (4.5-5.90); Red Cell Distribution Width 14.9 % (11.8-14.3); White Blood Cell 7.1 10^3/uL (4.4-10.8)
[2024-12-26 14:44] LABS: Potassium 4.1 mmol/L (3.5-5.1); Sodium 136 mmol/L (136-145)
[2024-12-26 14:45] LABS: Anion Gap 14 (5-15); Carbon Dioxide 28 mmol/L (20-31)
[2024-12-26 14:46] LABS: Calcium 9.8 mg/dL (8.7-10.4)
[2024-12-26 14:49] LABS: Chloride 94 mmol/L (98-107)
[2024-12-26 14:51] LABS: BUN/Creatinine Ratio 5.5 (10.0-20.0); Blood Urea Nitrogen 37 mg/dL (9-23); Glucose 183 mg/dL (74-106); Magnesium 2.3 mg/dL (1.6-2.6)
[2024-12-26] MEDS ORDERED: DEXTROSE (50%) 50ML SYRG IV PRN (16:00)
--- NOTE | 2024-12-26 16:00 | DVHPN2 ---
Progress Note - Dictate Date Seen: Dec 26, 2024 Medical Necessity Reason Pt with a Central, PICC or Fol: No vital signs Vital Sign Date Time Temp Pulse Resp B/P (MAP) Pulse Ox O2 Delivery O2 Flow Rate FiO2 12/26/24 15:00 67 8 178/87 (117) 96 12/26/24 14:11 Room Air* 0 21 12/26/24 13:00 97.6 97.6 Total Intake and Output 12/25/24 12/25/24 12/26/24 15:00 23:00 07:00 Intake Total 50 ml 406.333 ml Balance 50 ml 406.333 ml medications Current Medications Medications Dose Ordered Sig/Mane Route Start Time Stop Time Status Last Admin Dose Admin Acetaminophen 650 mg Q6HP PRN PO 12/25/24 23:00 12/26/24 08:38 650 MG Ondansetron HCl 4 mg Q4HP PRN IV 12/25/24 23:00 Morphine Sulfate 2 mg Q4HPRN PRN IV 12/25/24 23:00 12/26/24 12:31 2 MG Heparin Sodium (Porcine) 5,000 units Q12HR SC 12/26/24 10:00 12/26/24 08:47 5,000 UNITS Pantoprazole Sodium 40 mg DAILY PO 12/26/24 10:00 12/26/24 08:36 40 MG Atorvastatin Calcium 10 mg HS PO 12/26/24 22:00 Nifedipine 90 mg DAILY PO 12/26/24 10:00 12/26/24 08:37 90 MG Ampicillin Sodium/ Sulbactam Sodium 3 gm/Sodium Chloride 100 ml @ 100 mls/hr Q24H IV 12/25/24 23:45 Hydralazine HCl 100 mg Q8HR PO 12/26/24 22:00 Hydralazine HCl 20 mg Q6HR PRN IV 12/26/24 15:45 Diagnostic Test (Pha) 1 strip ACHS 12/26/24 17:00 UNV Insulin Human Regular HS SC 12/26/24 22:00 UNV Insulin Human Regular AC SC 12/26/24 17:00 UNV Dextrose 50 ml UD PRN IV 12/26/24 16:00 UNV objective General Appearance: alert, no distress HEENT: EOMI, PERRLA, normal external inspect of ears, no icterus, no nasal drainage Neck: no carotid bruit, no jugular venous distention (JVD), no lymphadenopathy Chest: normal thorax Respiratory: clear to auscultation, normal air movement Cardiovascular: regular rate and rhythm, no diastolic murmur, no jugular venous distention (JVD), no rub, no systolic murmur Abdominal: soft, no hepatomegaly, no mass, no splenomegaly, no tenderness Genitourinary: grossly normal external Musculoskeletal: no joint tenderness, no swelling Extremities: normal pulses, no calf tenderness, no clubbing, no cyanosis, no edema Skin: no bruising, no jaundice, no rash Neurological: alert, No focal deficit laboratory and microbiology Laboratory Tests 12/26/24 14:20 Test 12/26/24 14:20 Range/Units Serum Glucose 183 H 74-106 mg/dL Problem List 1. Syncope and collapse Monitor, cardiology consult 2. DKA Monitor, insulin gtt, nephrology consult 3. HLD Monitor, restart home meds 4. Anemia of chronic disease Monitor, daily labs 5. Hx brain surgery Monitor, PPI 6. Hyperkalemia Monitor, hyperkalemia tx Assessment/Plan Subjective: Patient is awake and alert. Objective: Patient was admitted for DKA. Has a history of end-stage renal disease on hemodialysis. Repeat labs after dialysis showed anion gap is closed. Cardiology evaluated EF as 55%. Plan: DC insulin drip. Transition to insulin sliding scale. Replace electrolytes as needed. Continue hemodialysis per nephrology. Stable for downgrade to telemetry floor. Plan discussed with: Patient, Other NAZIA GLOVER NP Dec 26, 2024 16:00
[2024-12-26] MEDS: hydrALAZINE HCL 25 MG TAB PO ONE (16:19)
[2024-12-26] MEDS ORDERED: HYDROMORPHONE HCL 1 MG/ML INJ IV PRN ×3 (16:30→21:00)
[2024-12-26] MEDS: InsuLIN REG 1unit/0.01ml Soln (100units/ml) SC SCH ×2 (17:00→22:50)
[2024-12-26] MEDS: hydrALAZINE HCL 20 MG/ML VL IV PRN (19:09)
[2024-12-26] MEDS: ATORVASTATIN 20 MG TAB PO SCH (22:29)
[2024-12-26] MEDS: HYDROmorphone HCL 2 MG/ML VL/or syr IV PRN (22:54)
[2024-12-26] MEDS: ONDANSETRON HCL 4 MG/2 ML VIAL IV PRN (22:55)
[2024-12-27 01:00] VITALS: BP 133/70; PULSE 77; RESP 18; TEMP 97.4; O2SAT 97
[2024-12-27 05:00] VITALS: BP 124/61; PULSE 86; RESP 18; TEMP 98.3; O2SAT 92
[2024-12-27] MEDS ORDERED: ZOFR4T PO (06:36)
[2024-12-27 08:00] VITALS: PULSE 76; RESP 20; O2SAT 96
--- NOTE | 2024-12-27 08:08 | DVHPN2 ---
Progress Note - Dictate Date Seen: Dec 27, 2024 Medical Necessity Reason Pt with a Central, PICC or Fol: No Subjective DIALYZED YESTERDAY . SCHEDULED FOR AN EXTRA SESSION TODAY vital signs Vital Sign Date Time Temp Pulse Resp B/P (MAP) Pulse Ox O2 Delivery O2 Flow Rate FiO2 12/27/24 06:16 124/61 12/27/24 05:00 98.3 86 18 92 98.3 12/26/24 23:39 Room Air* 0 21 Total Intake and Output 12/26/24 12/26/24 12/27/24 15:00 23:00 07:00 Intake Total 151.5 ml 350 ml 200 ml Output Total 2000 ml Balance 151.5 ml -1650 ml 200 ml medications Current Medications Medications Dose Ordered Sig/Mane Route Start Time Stop Time Status Last Admin Dose Admin Acetaminophen 650 mg Q6HP PRN PO 12/25/24 23:00 12/26/24 08:38 650 MG Ondansetron HCl 4 mg Q4HP PRN IV 12/25/24 23:00 12/27/24 04:24 4 MG Heparin Sodium (Porcine) 5,000 units Q12HR SC 12/26/24 10:00 12/26/24 22:31 5,000 UNITS Pantoprazole Sodium 40 mg DAILY PO 12/26/24 10:00 12/26/24 08:36 40 MG Atorvastatin Calcium 10 mg HS PO 12/26/24 22:00 12/26/24 22:29 10 MG Nifedipine 90 mg DAILY PO 12/26/24 10:00 12/26/24 08:37 90 MG Ampicillin Sodium/ Sulbactam Sodium 3 gm/Sodium Chloride 100 ml @ 100 mls/hr Q24H IV 12/25/24 23:45 Hydralazine HCl 100 mg Q8HR PO 12/26/24 22:00 12/27/24 06:16 100 MG Hydralazine HCl 20 mg Q6HR PRN IV 12/26/24 15:45 12/26/24 19:09 20 MG Diagnostic Test (Pha) 1 strip ACHS 12/26/24 17:00 12/27/24 06:17 1 STRIP Insulin Human Regular HS SC 12/26/24 22:00 Insulin Human Regular AC SC 12/26/24 17:00 Dextrose 50 ml UD PRN IV 12/26/24 16:00 Hydromorphone HCl 1 mg Q4HPRN PRN IV 12/26/24 21:15 12/27/24 04:25 1 MG objective Patient is awake and alert. HEENT: Normocephalic, no JVD. Patient is blind. Lungs: Bilateral good air entry. 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 Started on hydralazine BP stable . stable for dc from renal standpoint Plan discussed with: Patient NAZIA DIGGS MD Dec 27, 2024 08:08
[2024-12-27] MEDS: SODIUM CHL 0.9% 1000 ML BAG XX ONE (09:00)
[2024-12-27] MEDS ORDERED: INSULIN LANTUS (GLARGINE) 1 /0.01ml (100units/ml) SC SCH (10:00)
[2024-12-27] MEDS ORDERED: NIFEdipine ER 30 MG TAB PO SCH (10:00)
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
[2024-12-27] MEDS ORDERED: NIFE1TAB30 PO (10:58)
[2024-12-27] MEDS ORDERED: HYDR100T10 PO (10:58)
--- NOTE | 2024-12-27 10:59 | DVHDS2 ---
Discharge Summary Date of Admission Dec 25, 2024 at 22:49 Date of Discharge: Dec 27, 2024 Labs/Diagnostic Data: Laboratory Results Test 12/27/24 06:12 12/26/24 14:20 12/26/24 04:24 12/26/24 00:25 POC Glucose 74 mg/dl (70-106) White Blood Count 7.1 10^3/uL (4.4-10.8) Red Blood Count 3.39 10^6/uL (4.5-5.90) Hemoglobin 10.7 g/dL (13.5-17.5) Hematocrit 32.0 % (41.0-53.0) Mean Corpuscular Volume 94.4 fL (80.0-100.0) Mean Corpuscular Hemoglobin 31.5 pg (28.0-32.0) Mean Corpuscular Hemoglobin Concent 33.4 g/dL (32.0-36.0) Red Cell Distribution Width 14.9 % (11.8-14.3) Platelet Count 144 10^3/uL (140-450) Mean Platelet Volume 8.1 fL (6.9-10.8) Neutrophils (%) (Auto) 76.7 % (37.0-80.0) Lymphocytes (%) (Auto) 10.7 % (10.0-50.0) Monocytes (%) (Auto) 10.8 % (0.0-12.0) Eosinophils (%) (Auto) 1.5 % (0.0-7.0) Basophils (%) (Auto) 0.3 % (0.0-2.0) Neutrophils # (Auto) 5.4 10 ^3/uL (1.6-8.6) Lymphocytes # (Auto) 0.8 10 ^3/uL (0.4-5.4) Monocytes # (Auto) 0.8 10 ^3/uL (0-1.3) Eosinophils # (Auto) 0.1 10 ^3/uL (0-0.8) Basophils # (Auto) 0 10 ^3/uL (0-0.2) Nucleated Red Blood Cells 0.1 % Sodium Level 136 mmol/L (136-145) Potassium Level 4.1 mmol/L (3.5-5.1) Chloride Level 94 mmol/L (98-107) Carbon Dioxide Level 28 mmol/L (20-31) Anion Gap 14 (5-15) Blood Urea Nitrogen 37 mg/dL (9-23) Creatinine 6.67 mg/dL (0.700-1.30) Glomerular Filtration Rate Calc 9 mL/min (>90) BUN/Creatinine Ratio 5.5 (10.0-20.0) Serum Glucose 183 mg/dL (74-106) Calcium Level 9.8 mg/dL (8.7-10.4) Magnesium Level 2.3 mg/dL (1.6-2.6) Beta-Hydroxybutyric Acid 0.372 mmol/L (< 0.4) Phosphorus Level 4.3 mg/dL (2.4-5.1) Total Bilirubin 0.2 mg/dL (0.2-1.0) Aspartate Amino Transferase (AST) 14 U/L (13-40) Alanine Aminotransferase (ALT) 27 U/L (7-40) Alkaline Phosphatase 164 U/L (46-116) Total Protein 7.6 g/dL (5.7-8.2) Albumin 4.5 g/dL (3.2-4.8) Hepatitis A IgM Antibody Negative Hepatitis B Surface Antigen Negative (Negative) Hepatitis B Core IgM Antibody Negative (Negative) Hepatitis C Antibody Negative (Negative) Blood Gas Specimen Type Arterial Blood Gas Sample Site Right radial Blood Gas Patient Temperature 37.0 Arterial Blood Date Drawn [id number] Arterial Blood pH 7.294 (7.350-7.450) Arterial Blood Partial Pressure CO2 32.7 mmHg (35.0-48.0) Arterial Blood Partial Pressure O2 75.0 mmHg (83.0-108.0) Arterial Blood HCO3 15.5 mmol/L (21.0-28.0) Arterial Blood Oxygen Saturation 92.4 % (94.0-98.0) Arterial Blood Base Excess -9.9 mmol/L (-2.0-3.0) Arterial Blood Oxyhemoglobin 90.8 % (94.0-98.0) Arterial Blood Carboxyhemoglobin 1.4 % (0.5-1.5) Arterial Blood Methemoglobin 0.3 % (0.0-1.5) Jesus Test Yes Blood Gas Total Hemoglobin 11.40 g/dL (13.5-17.5) Blood Gas Modality Room air FiO2 % 21.0 Test 12/25/24 23:16 12/25/24 23:13 12/25/24 20:40 Hemoglobin A1c 8.0 % A1C (<5.7) Ammonia < 10 umol/L (11-32) Triglycerides Level 103 mg/dL (< 150) Cholesterol Level 149 mg/dL (< 200) LDL Cholesterol 56 mg/dL (< 100) HDL Cholesterol 67 mg/dL (40-59) Vitamin B12 Level 1776 pg/mL (211-911) Vitamin D 25-Hydroxy 51.6 ng/mL (30.0-100) Thyroid Stimulating Hormone (TSH) 1.16 uIU/mL (0.55-4.78) Prothrombin Time 10.9 sec (9.3-11.8) Prothrombin Time INR 1.03 (0.9-1.15) Activated Partial Thromboplast Time 29.1 SEC (24.5-34.5) Lactic Acid Level 0.9 mmol/L (0.4-2.0) Troponin I High Sensitivity 13 ng/L (</=54) Other Laboratory Tests 12/26/24 14:20 Brief Hx & Hospital Course: Patient was admitted for syncope and collapse most likely related to DKA. Patient has end-stage renal disease on hemodialysis. Most likely patient was dehydrated. Hypokalemia was treated with hyperkalemia protocol. Patient was treated with insulin drip now on sliding scale. Patient's diet was advanced. She is currently doing well. Patient received dialysis. She was cleared for discharge by cardiology and nephrology. Patient was instructed to follow-up with cardiology outpatient for Holter monitor to monitor for any cardiac event. Per nephrology they did recommend to DC lisinopril. Patient will follow-up with her PCP in 1 week. The patient received proper medical treatment and medications. Vital signs, Imaging and Laboratory Work was monitored daily. All consults recommendations were followed as provided. There were no complaints or new complaints upon discharge, all questions and concerns were answered. Patient was advised to return to the ER or call 911 if any headaches, dizziness, shortness of breath, chest pain, bleeding, fevers, or worsening of medical condition. Patient/Family was counseled about treatment plan, medications, possible side effects, patient verbalized understanding. All questions were answered to the best of my ability. The patient symptoms improved and they are okay to be DC. Condition at Discharge: Stable Final Diagnosis/Problems List Syncope and collapse DKA HLD Anemia of chronic disease Hx brain surgery Hyperkalemia Discharge Disposition: Home Discharge Instruct/Medications Diet: Consistent carbohydrate, Cardiac 2g Na,low cholest Activity: No Restrictions, As Tolerated Follow Up/Referral: pcp 1 week Discharge Statement: "Patient was advised to return to the ER or call 911 if any headaches, dizziness, shortness of breath, chest pain, abdominal pain, bleeding, fevers, or worsening of medical condition. Patient was counseled about treatment plan, medications, possible side effects, patientverbalized understanding. All questions were answered to the best of my ability. This discharge took greater then 30 minutes in planning, reviewing documentation, counseling the patient, and discussing with other team members." ASSESSMENT ASSESSMENT Assessment Syncope DKA NAZIA GLOVER NP Dec 27, 2024 10:59
[2024-12-27 12:05] VITALS: BP 124/61
[2024-12-27 12:22] LABS: Potassium 4.3 mmol/L (3.5-5.1); Sodium 137 mmol/L (136-145)
[2024-12-27 12:23] LABS: Anion Gap 12 (5-15); Calcium 9.6 mg/dL (8.7-10.4); Carbon Dioxide 29 mmol/L (20-31)
[2024-12-27 12:28] LABS: BUN/Creatinine Ratio 4.9 (10.0-20.0)
[2024-12-27 12:30] LABS: Blood Urea Nitrogen 25 mg/dL (9-23); Chloride 96 mmol/L (98-107); Glucose 142 mg/dL (74-106)
[2024-12-27 13:00] VITALS: BP 108/60; PULSE 86; RESP 20; TEMP 98.1; O2SAT 95
[2024-12-27 13:08] VITALS: BP 120/68; PULSE 66; RESP 18
== END 2024-12-27 15:31 | disposition home or self-care (01) | DRG 420 ==
LOC: EDBD 16:40 → ER 16:40 → OVERFLOW 22:49 → TELE-WESTW 12-26 22:40
PROVIDERS: ADMIT Nurse Practitioner; ATTEND Nurse Practitioner Family
PROC: 5A1D70Z Performance of Urinary Filtration, Intermittent, Less than 6 Hours Per Day (ICD-10-PCS; principal; 2024-12-26)
PROC: 5A1D70Z Performance of Urinary Filtration, Intermittent, Less than 6 Hours Per Day (ICD-10-PCS; 2024-12-27)
DX: E11.10 Type 2 diabetes mellitus with ketoacidosis without coma (principal); G93.41 Metabolic encephalopathy; I12.0 Hypertensive chronic kidney disease with stage 5 chronic kidney disease or end stage renal disease; N18.6 End stage renal disease; D63.1 Anemia in chronic kidney disease; E86.0 Dehydration; E87.1 Hypo-osmolality and hyponatremia; E78.5 Hyperlipidemia, unspecified; E87.5 Hyperkalemia; I16.0 Hypertensive urgency; J32.9 Chronic sinusitis, unspecified; H54.3 Unqualified visual loss, both eyes; Z79.4 Long term (current) use of insulin; Z79.899 Other long term (current) drug therapy; Z99.2 Dependence on renal dialysis
CPT/HCPCS: 36415; 36600; 70450; 71045; 80048; 80053; 80061; 80074; 82010; 82140; 82306; 82607; 82805; 82962; 83036; 83605; 83735; 84100; 84443; 84484; 85025; 85610; 85730; 90935; 93005; 93306; 93886; 94640; 96365; 96375; 99291; G0378; J1642; J1815; J2405

== ENCOUNTER 2025-04-28 12:54 | Emergency (ER) | payer OTHER ==
[~2025-04-28] VITALS: Ht 172.7 cm; Wt 73.5 kg
[~2025-04-28 12:54] MED LIST changes: -FURO40TA4 PO; +HYDR100T10 PO; -LISI20TA56 PO; +NIFE1TAB30 PO; -NIFE90TA75 PO; +ZOFR4T PO
[2025-04-28 13:44] LABS: Hematocrit 38.3 % (41.0-53.0); Hemoglobin 13.2 g/dL (13.5-17.5); Mean Corpuscular Hemoglobin 31.8 pg (28.0-32.0); Mean Corpuscular Volume 91.9 fL (80.0-100.0); Nucleated Red Blood Cells % 0.1 %
--- NOTE | 2025-04-28 13:45 | ED.PDOC ---
Altered Mental Status HPI Comments 50-year-old male with a history of hypertension, diabetes, end-stage renal disease on dialysis, blindness, brought in by EMS from dialysis center for evaluation of altered mental status. Per EMS, patient's mother reported that the patient had been intermittently confused over the past 2 days. His baseline mental status is alert and oriented x4. After completing dialysis, the patient was found to be extremely altered and was unresponsive for several minutes. EMS reports he was intermittently alert and following commands, then unresponsive with shaking body movements. On arrival to ED, the patient withdraws from painful stimulus, but is otherwise not responding verbally and not following commands. Time Seen by MD: 13:00 Primary Care Provider: DYANAK Reviewed Notes: Nurses Notes, Jewelry Model Maker Notes, Medications, Allergies Allergies: Coded Allergies: NO KNOWN ALLERGIES (Unverified , 01/26/14) Home Meds Active Scripts Nifedipine (Nifedipine Er) 60 Mg Tab, 1 TAB PO DAILY, #30 TAB 5 Refills Prov:NAZIA GLOVER PREVENTIVE MAINTENANCE COORDINATOR 12/27/24 Hydralazine Hcl (Hydralazine Hcl) 100 Mg Tab, 1 TAB PO TID, #90 TAB 5 Refills Prov:NAZIA GLOVER PREVENTIVE MAINTENANCE COORDINATOR 12/27/24 Reported Medications Ondansetron Odt 4MG Tab (ZOFRAN PO) 4 Mg Tb, 4 MG PO, TAB ODT TAB-DISSOLVE IN MOUTH, THEN SWALLOW 12/27/24 Pantoprazole Sodium Sesquihydr (Pantoprazole Sodium) 40 Mg Tab, 1 TAB PO DAILYPRN 01/04/22 Atorvastatin Calcium (Lipitor) 40 Mg Tab, 1 TAB PO QPM, #90 TAB 1 Refill 11/18/18 Insulin Lispro (Human) (Humalog) Unknown Strength Inj, SC, INJ 11/17/18 Insulin Glargine (Lantus) Unknown Strength Inj, SC, INJ 11/17/18 Information Source: Patient, Emergency Med Personnel Mode of Arrival: EMS Past Medical History PAST MEDICAL HISTORY: DM, ESRD (w/HD M/W/F), HTN Past Medical History (Other): 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 Bilateral corneal opacification.) Neck: Full Range of Motion, Non-Tender, Normal Inspection, Supple Respiratory: Lungs Clear, No Accessory Muscle Use, No Respiratory Distress, Normal Breath Sounds Cardiovascular: No Edema, No JVD, Regular Rate/Rhythm Breast Exam: Deferred Gastrointestinal: Non Tender, Soft Genitalia: Deferred Pelvic: Deferred Rectal: Deferred Extremities: Normal inspection, Normal range of motion, Non-tender, No pedal edema Neurologic: Other (Eyes closed. Withdraws from painful stimulus. Moves all extremities. Intermittently exhibits right upper extremity tonic activity and lower extremity limb shaking.) Cerebellar Function: NOT DONE Reflexes: NOT DONE Skin: Dry, Normal Color, Warm Lymphatic: NOT DONE EKG EKG : Comments Sinus rhythm, rate 86, FL prolonged at 208, normal QRS interval, QTC prolonged at 505, normal axis, normal QRS, no ST/T changes. Baseline artifact. Was a procedure done? Was a procedure done?: Yes Sedation Sedation?: Yes Informed consent obtained: No Sedation start time: 14:59 Sedation end time: 15:20 Sedation total time: 21 minutes Central Line Recorder of insertion practice: Care Mgr Occupation of filler block inserter remover: Attending Physician Room prepared for procedure: Yes Care Mgr performed hand hygien: Yes Maximal sterile barrier precau: Mask/Eye shield, Sterile gown, Cap, Sterlie gloves, Large sterlie drape Skin Preparation: Chlorhexidine gluconate, Alcohol Skin preparation completely dr: Yes Insertion site: Right, Femoral Central line catheter type: [id number] dialysis Number of lumens: 3 Central line exchanged over a: Yes Antiseptic ointment applied to: No Post Assessment: Proper placement Informed consent obtained: No (Procedure was emergent) Risks/benefits/alt described: No (Procedure was emergent) Intubation Indication: Altered Mental Status, Airway Protection Prep: Preoxygenation Pretreated with: Sedation Medicated with: Other (4mg Versed, 50mg Rocuronium) Intubation Approach: Orotracheal (8.0) Intubation size: cm (24cm at the lip) Informed consent obtained: No (Procedure was emergent) Risks/benefits/alt described: No (Procedure was emergent) Differential Diagnosis (ALOC) Differential Diagnosis: Encephalopathy, Meningitis, Sepsis, Hypoxemia, Seizure, CVA, Mass Lesion, SAH, Drug Overdose, ETOH Intoxication, Heart Failure X-Ray, Labs, Meds, VS Vital Signs Date Time Temp Pulse Resp B/P (MAP) Pulse Ox O2 Delivery O2 Flow Rate FiO2 04/28/25 13:30 Room Air* 0 21 04/28/25 13:25 98.7 85 16 161/91 (114) 98 98.7 04/28/25 13:18 98.7 84 18 101/74 98 98.7 04/28/25 13:02 86 Lab Test 04/28/25 14:48 04/28/25 13:30 Range/Units Troponin I High Sensitivity 28 28 </=54 ng/L White Blood Count 8.3 4.4-10.8 10^3/uL Red Blood Count 4.16 L 4.5-5.90 10^6/uL Hemoglobin 13.2 L 13.5-17.5 g/dL Hematocrit 38.3 L 41.0-53.0 % Mean Corpuscular Volume 91.9 80.0-100.0 fL Mean Corpuscular Hemoglobin 31.8 28.0-32.0 pg Mean Corpuscular Hemoglobin Concent 34.6 32.0-36.0 g/dL Red Cell Distribution Width 13.3 11.8-14.3 % Platelet Count 123 L 140-450 10^3/uL Mean Platelet Volume 9.1 6.9-10.8 fL Neutrophils (%) (Auto) 85.8 H 37.0-80.0 % Lymphocytes (%) (Auto) 6.9 L 10.0-50.0 % Monocytes (%) (Auto) 7.1 0.0-12.0 % Eosinophils (%) (Auto) 0.0 0.0-7.0 % Basophils (%) (Auto) 0.2 0.0-2.0 % Neutrophils # (Auto) 7.1 1.6-8.6 10 ^3/uL Lymphocytes # (Auto) 0.6 0.4-5.4 10 ^3/uL Monocytes # (Auto) 0.6 0-1.3 10 ^3/uL Eosinophils # (Auto) 0 0-0.8 10 ^3/uL Basophils # (Auto) 0 0-0.2 10 ^3/uL Nucleated Red Blood Cells 0.1 % Sodium Level 135 L 136-145 mmol/L Potassium Level 4.0 3.5-5.1 mmol/L Chloride Level 90 L 98-107 mmol/L Carbon Dioxide Level 27 20-31 mmol/L Anion Gap 18 H 5-15 Blood Urea Nitrogen 22 9-23 mg/dL Creatinine 6.10 H 0.700-1.30 mg/dL Glomerular Filtration Rate Calc 10 >90 mL/min BUN/Creatinine Ratio 3.6 L 10.0-20.0 Serum Glucose 135 H 74-106 mg/dL Calcium Level 9.3 8.7-10.4 mg/dL Total Bilirubin 0.5 0.2-1.0 mg/dL Aspartate Amino Transferase (AST) 20 13-40 U/L Alanine Aminotransferase (ALT) 25 7-40 U/L Alkaline Phosphatase 135 H 46-116 U/L Ammonia < 10 L 11-32 umol/L Total Protein 7.5 5.7-8.2 g/dL Albumin 4.9 H 3.2-4.8 g/dL Plasma/Serum Blood Alcohol < 3.0 <10 mg/dL Current Medications Medications (Trade) Dose Ordered Sig/Mane Route Start Time Stop Time Status Last Admin Levetiracetam 100 ml @ 400 mls/hr ONCE ONCE IV 04/28/25 14:30 04/28/25 14:44 DC 04/28/25 15:31 PROCEDURE(s): HWOCT - HEAD WITHOUT CONTRAST REASON: aloc ORDER NUMBER(s): [id number], ACCESSION NUMBER(s): [id number] EXAM: CT HEAD WITHOUT CONTRAST INDICATION: aloc TECHNIQUE: CT of the head without intravenous contrast. Radiation Dose Information: CT Dose: CTDI volume is 52.06 mGy. Dose-length product is 1.71 mGy*cm The dose indicators for CT are the volume Computed Tomography (CT) Dose Index (CTDIvol) and the Dose Length Product (DLP), and are measured in units of mGy and mGy-cm, respectively. These indicators are not patient dose, but values generated from the CT scanner acquisition factors. The report includes radiation exposure data for exposures received during this examination. COMPARISON: CT HEAD WITHOUT CONTRAST on DOS: 12/25/24, HEAD WITHOUT CONTRAST on DOS: 01/04/22, HEAD WITHOUT CONTRAST on DOS: 01/20/21 FINDINGS: Subarachnoid hemorrhage blood in the left lateral ventricle 3rd ventricle and posterior left parietal lobe. There is a 7-8 mm midline shift to the right The ventricles, sulci and cisterns are age appropriate. The zavala-white differentiation is intact. Patchy periventricular and subcortical white matter hypoattenuation is nonspecific but may be related to small vessel ischemic disease. Opacification of the right and left maxillary sinuses and mastoid air cells are clear. The surrounding soft tissues and osseous structures are unremarkable. IMPRESSION: 1. Large subarachnoid hemorrhage with blood in 3rd and left lateral ventricle. There is also hemorrhage in the posterior left parietal lobe. 2. There is a 7-8 mm midline shift to the right. 3. Mucosal thickening of the right and left maxillary, RIGHT ETHMOID AND SPHENOID SINUSES BILATERALLY sinuses. Mastoid air cells appear clear 4. No hemorrhage or infarct noted on prior CT head 12/25/2024. PROCEDURE(s): CXRP - CHEST PORTABLE REASON: aloc ORDER NUMBER(s): [id number], ACCESSION NUMBER(s): [id number] EXAM: XY CHEST PORTABLE Indication: aloc Technique: Single frontal view of the chest was obtained Comparison: XY CHEST XRAY 1 VIEW on DOS: 12/26/24, CT CHEST ABD PELVIS WO CONTRAS on DOS: 01/04/22, CHEST XRAY 1 VIEW on DOS: 01/04/22, CXR1 on DOS: 01/04/22 FINDINGS: Lines and Tubes: None Lungs: No focal consolidation. Pleura: No effusion. No pneumothorax. Cardiomediastinal contours: Unremarkable Bones: No acute osseous abnormality. IMPRESSION: No acute cardiopulmonary disease. X-Ray, Labs, Meds, VS Comment 50-year-old male with a history of hypertension, diabetes, end-stage renal disease on dialysis, blindness, brought in by EMS from dialysis center for evaluation of altered mental status. Vitals remarkable for BP 161/91 Exam remarkable for no responses to verbal stimuli and not following commands. Intermittent right upper extremity tonic activity and lower extremity shaking. Withdraws from painful stimulus. Rhythm strip independently interpreted by me: Sinus rhythm, rate eighty-six, no ectopy. CT head IMPRESSION: 1. Large subarachnoid hemorrhage with blood in 3rd and left lateral ventricle. There is also hemorrhage in the posterior left parietal lobe. 2. There is a 7-8 mm midline shift to the right. 3. Mucosal thickening of the right and left maxillary, RIGHT ETHMOID AND SPHENOID SINUSES BILATERALLY sinuses. Mastoid air cells appear clear 4. No hemorrhage or infarct noted on prior CT head 12/25/2024. Chest x-ray unremarkable Post intubation chest x-ray independently interpreted by me shows ETT adequately positioned CBC unremarkable, CMP remarkable for sodium 135, chloride 90, alcohol negative, troponin negative, ammonia negative Patient treated with the following in the ED: Keppra 1 g IV, Versed 4 mg IV and rocuronium 50 mg IV, Versed infusion titrated for sedation, nicardipine infusion titrated to keep map less than 140. Per family, patient is not anticoagulated. He is not on aspirin. On re-evaluation, blood pressure is controlled. Heart rate is 101, sinus tach, oxygen saturation is 98% on ventilator. Patient appears stable for transport. Case discussed with Dr. Wesley at [facility] who will accept the patient. Time of 1ST Reevaluation: 13:30 Reevaluation 1ST: Unchanged Time of 2ND Reevaluation: 15:49 Reevaluation 2ND: Improved Patient Education/Counseling: Other (Patient is unresponsive ) Family Education/Counseling: Diagnosis, Treatment, Need For Follow Up SEPSIS Sepsis Screen Physician Orders Chest Portable (04/28/25 13:00) Urinalysis (04/28/25 13:00) Electrocardigram (04/28/25 13:00) Head Without Contrast (04/28/25 13:00) Drug Screen (04/28/25 13:00) Troponin-I Hs (04/28/25 16:00) Imaging Transfer Request (04/28/25 14:04) Chest Xray 1 View (04/28/25 14:52) Midazolam Drip 50 Mg/50ml (Versed Drip 5 (04/28/25 15:30) Rass Sedation Scale Q1HR (04/28/25 15:20) Nicardipine Hcl In Sodium Chlo (Cardene (04/28/25 15:25) Respiratory Culture W/ Gs (04/28/25 15:02) Abg W/ Co-Ox (04/28/25 16:00) Ventilator Orders (04/28/25 15:02) Vital Signs Date Time Temp Pulse Resp B/P (MAP) Pulse Ox O2 Delivery O2 Flow Rate FiO2 04/28/25 13:30 Room Air* 0 21 04/28/25 13:25 98.7 85 16 161/91 (114) 98 98.7 04/28/25 13:18 98.7 84 18 101/74 98 98.7 04/28/25 13:02 86 Laboratory Tests Test 04/28/25 13:30 White Blood Count 8.3 10^3/uL (4.4-10.8) Medications Medications Dose Ordered Sig/Mane Route Start Time Stop Time Status Last Admin Dose Admin Levetiracetam 100 ml @ 400 mls/hr ONCE ONCE IV 04/28/25 14:30 04/28/25 14:44 DC 04/28/25 15:31 Departure 1 Departure Time of Disposition: 14:28 Impression: Primary Impression: Subarachnoid hemorrhage Disposition: 02 SHORT TERM HOSPITAL Admit to: ICU Condition: Critical Critical Care Note Critical Care Time?: Yes (45 min-critical care time only) Critical care comment: Critical care time including multiple bedside re-evaluations, review of lab and imaging studies, and discussion of the case with the consulting and accepting providers. Patient is high risk for neurologic decompensation. Stability Stability form required: No Heart Score Heart Score: Heart Score Response (Comments) Value History N/A 0 EKG N/A 0 Age N/A 0 Risk Factors N/A 0 Troponin N/A 0 Total 0 I personally scribed for MARY SHEFFIELD MD ([email or web address]) on 04/28/25 at 13:45. Electronically submitted by Boo Nguyen ([email or web address]). I personally scribed for MARY SHEFFIELD MD ([email or web address]) on 04/28/25 at 15:41. Electronically submitted by Boo Nguyen ([email or web address]). MARY SHEFFIELD MD Apr 28, 2025 13:45
[2025-04-28 13:58] LABS: Alanine Aminotransferase 25 U/L (7-40); Anion Gap 18 (5-15); BUN/Creatinine Ratio 3.6 (10.0-20.0); Blood Urea Nitrogen 22 mg/dL (9-23); Calcium 9.3 mg/dL (8.7-10.4); Carbon Dioxide 27 mmol/L (20-31); Potassium 4.0 mmol/L (3.5-5.1); Total Protein 7.5 g/dL (5.7-8.2)
[2025-04-28 13:59] LABS: Albumin 4.9 g/dL (3.2-4.8); Alkaline Phosphatase 135 U/L (46-116); Bilirubin, Total 0.5 mg/dL (0.2-1.0); Chloride 90 mmol/L (98-107); Glucose 135 mg/dL (74-106); Sodium 135 mmol/L (136-145)
--- NOTE | 2025-04-28 14:13 | DVH ---
EXAM: XY CHEST PORTABLE Indication: aloc Technique: Single frontal view of the chest was obtained Comparison: XY CHEST XRAY 1 VIEW on DOS: 12/26/24, CT CHEST ABD PELVIS WO CONTRAS on DOS: 01/04/22, CAMILO ST XRAY 1 VIEW on DOS: 01/04/22, CXR1 on DOS: 01/04/22 FINDINGS: Lines and Tubes: None Lungs: No focal consolidation. Pleura: No effusion. No pneumothorax. Cardiomediastinal contours: Unremarkable Bones: No acute osseous abnormality. IMPRESSION: No acute cardiopulmonary disease.
--- NOTE | 2025-04-28 14:36 | DVH ---
EXAM: CT HEAD WITHOUT CONTRAST INDICATION: aloc TECHNIQUE: CT of the head without intravenous contrast. Radiation Dose Information: CT Dose: CTDI volume is 52.06 mGy. Dose-length product is 1.71 mGy*cm The dose indicators for CT are the volume Computed Tomography (CT) Dose Index (CTDIvol) and the Dose Length Product (DLP), and are measured in units of mGy and mGy-cm, respectively. These indicators are not patient dose, but values generated from the CT scanner acquisition factors. The report includes radiation exposure data for exposures received during this examination. COMPARISON: CT HEAD WITHOUT CONTRAST on DOS: 12/25/24, HEAD WITHOUT CONTRAST on DOS: 01/04/22, HEAD WIT HOUT CONTRAST on DOS: 01/20/21 FINDINGS: Subarachnoid hemorrhage blood in the left lateral ventricle 3rd ventricle and posterior left parietal lobe. There is a 7-8 mm midline shift to the right The ventricles, sulci and cisterns are age appropriate. The zavala-white differentiation is intact. Patchy periventricular and subcortical white matter hypoattenuation is nonspecific but may be related to small vessel ischemic disease. Opacification of the right and left maxillary sinuses and mastoid air cells are clear. The surrounding soft tissues and osseous structures are unremarkable. IMPRESSION: 1. Large subarachnoid hemorrhage with blood in 3rd and left lateral ventricle. There is also hemorrha ge in the posterior left parietal lobe. 2. There is a 7-8 mm midline shift to the right. 3. Mucosal thickening of the right and left maxillary, RIGHT ETHMOID AND SPHENOID SINUSES BILATERALLY sinuses. Mastoid air cells appear clear 4. No hemorrhage or infarct noted on prior CT head 12/25/2024. CRITICAL FINDINGS Critical Result: SUBARACHNOID HEMORRHAGE WITH BLOOD IN THE 3RD, LEFT LATERAL VENTRICLE, LEFT PARIETAL LOBE. THERE IS a 7-8 MM MIDLINE SHIFT TO THE RIGHT. Findings discussed with Dr Yancey , at 04/28/2025 02:28 PM, and acknowledged receipt and understanding of the findings. HS:Y Gin.
[2025-04-28] MEDS: MIDAZOLAM DRIP 50 mg/50mL 50 ML IV ONE (14:50)
[2025-04-28] MEDS: ROCURONIUM 10MG/ML 10ML VIAL IV ONE ×2 (14:59→15:00)
[2025-04-28] MEDS: MIDAZOLAM HCL 5 MG/ML-1ML VIAL IV ONE (14:59)
[2025-04-28] MEDS: MIDAZOLAM HCL 5 MG/ML-1ML VIAL ONE (14:59)
[2025-04-28] MEDS: MIDAZOLAM DRIP 50 mg/50mL 50 ML IV SCH (15:03)
[2025-04-28] MEDS: NICARDIPINE HCL IN SODIUM CHLO 200 ML IV SCH (15:25)
[2025-04-28] MEDS: levETIRAcetam 1000 mg/100ml 100 ML IV ONE (15:31)
--- NOTE | 2025-04-28 15:56 | DVH ---
CHEST RADIOGRAPH Indication: POST INTUBATION Technique: Single frontal view of the chest was obtained COMPARISON: XY CHEST PORTABLE on DOS: 04/28/25, XY CHEST XRAY 1 VIEW on DOS: 12/26/24, CHEST XRAY 1 VIE W on DOS: 01/04/22, CXR1 on DOS: 01/04/22 FINDINGS: Lines and Tubes: Endotracheal tube tip projects approximately 4.2 cm above the level of the bailey. Enteric catheter courses below the level of the diaphragm and terminates beyond the inferior margin o f the image. Lungs: Clear Pleura: No effusion. No pneumothorax. Cardiomediastinal contours: Unremarkable Bones: Unremarkable IMPRESSION: 1. No acute disease. 2. Endotracheal tube and enteric catheter as above.
[2025-04-28 16:18] LABS: Base Excess 0.3 mmol/L (-2.0-3.0)
[2025-04-28 16:20] VITALS: PULSE 80; RESP 18; TEMP 98; O2SAT 97
[2025-04-28 16:40] VITALS: BP 115/63
[2025-04-28] MEDS: PROPOFOL 100 ML IV SCH (16:40)
--- NOTE | 2025-04-28 19:44 | ECG ---
[facility] Test Date: 2025-04-28 Test Time: 13:02:29 Pat Name: HONG MANCUSO Department: ED Room: Gender: M Bariatric Surgeon: PREM SANTOSB: 1975 Requested By: MARY SHETH Order Number: [id number] Reading MD: Kevin Donohue Measurements Intervals [place] Rate: 86 P: 77 OR: 208 QRS: 45 QRSD: 109 T: 18 QT: 422 QTc: 505 Interpretive Statements Sinus rhythm Borderline prolonged OR interval Probable left atrial enlargement Left ventricular hypertrophy Anterior ST elevation, probably due to LVH Prolonged QT interval Artifact in lead(s) I,II,aVR,aVL,aVF,V1,V2,V6 Electronically Signed On 05-01-2025 22:49:48 PDT by Kevin Donohue Please click the below link to view image of tracing.
== END 2025-04-28 16:40 | disposition short-term general hospital (02) ==
LOC: EDBD 12:54 → ER 12:54
DX: I60.9 Nontraumatic subarachnoid hemorrhage, unspecified (principal); I13.11 Hypertensive heart and chronic kidney disease without heart failure, with stage 5 chronic kidney disease, or end stage renal disease; E11.22 Type 2 diabetes mellitus with diabetic chronic kidney disease; N18.6 End stage renal disease; Z79.899 Other long term (current) drug therapy
CPT/HCPCS: 31500; 36415; 36556; 36600; 70450; 71045; 80053; 80320; 82140; 82805; 84484; 85025; 87070; 87205; 93005; 96374; 99291; J1953; J2250; J2404; J2704; 99152